=== PATIENT | male | born 1955 | race Two or more races ===

== ENCOUNTER 2023-03-10 05:13 | Inpatient (IN) | payer OTHER ==
[~2023-03-10] VITALS: Ht 165.1 cm; Wt 97.5 kg
[2023-03-10] MEDS ORDERED: POLYMYXIN B SULFATE 500,000 UNITS ONE (05:48)
[2023-03-10] MEDS ORDERED: ANESTHESIA TRAY IN PYXIS 1 EA TRAY MC ONE (05:48)
[2023-03-10] MEDS ORDERED: BUPIVACAINE 0.5 % PF 150 MG/30 ML VIAL ONE ×2 (05:48→06:09)
[2023-03-10 05:57] VITALS: BP 180/99; TEMP 98.2; O2SAT 98
[2023-03-10] MEDS ORDERED: HYDROMORPHONE INJ 2 MG/ML DISP.SYRIN ONE (06:08)
[2023-03-10] MEDS ORDERED: FENTANYL PF 250MCG/5ML AMPUL ONE (06:08)
[2023-03-10] MEDS ORDERED: FAMOTIDINE/PF INJ 20 MG/2 ML VIAL IV ONE (06:09)
[2023-03-10] MEDS ORDERED: ROCURONIUM BROMIDE 50 MG/5 ML ONE (06:09)
[2023-03-10] MEDS ORDERED: TRANEXAMIC ACID 3,000 MG in SODIUM CHLORIDE IRRIG SOLUTION 70 ML IR ONE (07:00)
[2023-03-10] MEDS ORDERED: SEVOFLURANE 250 ML BOTTLE IH ONE (07:19)
[2023-03-10] MEDS ORDERED: hydrALAZINE HCL IV 20 MG VIAL ONE (09:27)
[2023-03-10] MEDS ORDERED: PANT40TA49 PO (09:54)
[2023-03-10] MEDS ORDERED: TRAZ-182 PO (09:54)
[2023-03-10] MEDS ORDERED: ACET-2605 PO (09:54)
[2023-03-10] MEDS ORDERED: AMLO-212 PO (09:54)
[2023-03-10] MEDS: IV D5/0.45 NACL 1,000 ML IV PRN ×2 (09:59→18:08)
[2023-03-10] MEDS ORDERED: ZOLPIDEM TARTRATE 5 MG TABLET PO PRN (10:00)
[2023-03-10] MEDS ORDERED: BISACODYL SUPP (10 MG) 10 MG/SUPP.RECT SUPP.RECT RC PRN (10:00)
[2023-03-10] MEDS ORDERED: ONDANSETRON HCL/PF 4 MG/2 ML VIAL IV PRN (10:00)
[2023-03-10] MEDS ORDERED: DOCUSATE SODIUM 250 MG CAPSULE PO PRN (10:00)
[2023-03-10] MEDS ORDERED: ACETAMINOPHEN 325 MG TABLET PO PRN (10:00)
[2023-03-10] MEDS ORDERED: HYDROCODONE/APAP 5/325MG TABLET PO PRN (10:00)
[2023-03-10] MEDS ORDERED: SENNOSIDES 8.6 MG TABLET PO PRN (10:00)
[2023-03-10] MEDS: HYDROMORPHONE 1 MG/1 ML DISP.SYRIN IV PRN ×4 (11:04→22:23)
[2023-03-10] MEDS: ANCEF 1 GM/50 ML D5W IV SCH ×4 (14:09→22:11)
[2023-03-10 16:00] VITALS: BP 128/76; TEMP 97.9; O2SAT 97
[2023-03-10 20:00] VITALS: BP 163/99; TEMP 98.2; O2SAT 98
[2023-03-10] MEDS ORDERED: oxyCODONE IR immediate release 5 MG PO ONE (20:30)
[2023-03-10] MEDS ORDERED: diphenhydrAMINE HCL 25 MG CAPSULE PO PRN (20:30)
[2023-03-10] MEDS ORDERED: CLONIDINE HCL 0.1 MG TABLET PO PRN (20:30)
[2023-03-10] MEDS ORDERED: MAG HYDROX/AL HYDROX/SIMETH 30 ML UDC PO PRN (20:30)
[2023-03-10] MEDS: FAMOTIDINE (20 MG) 20 MG TABLET PO SCH (20:56)
[2023-03-10] MEDS ORDERED: AMLODIPINE BESYLATE 5 MG TABLET PO ONE (21:00)
[2023-03-10 23:00] VITALS: BP 159/87; O2SAT 98
[2023-03-11] MEDS: IV D5/0.45 NACL 1,000 ML IV PRN (02:25)
[2023-03-11] MEDS: oxyCODONE IR immediate release 5 MG PO PRN ×3 (02:43→12:25)
[2023-03-11] MEDS: HYDROMORPHONE 1 MG/1 ML DISP.SYRIN IV PRN ×2 (04:46→09:20)
[2023-03-11 07:00] VITALS: BP 182/107; TEMP 98.6; O2SAT 97
[2023-03-11 07:19] LABS: BASOPHILS % (AUTO) 0.1 % (0.0-2.0); HEMATOCRIT 44 % (39-51); HEMOGLOBIN 14.9 g/dL (13.5-17.5); LYMPHOCYTES # (AUTO) 1.3 K/uL (0.8-4.8); LYMPHOCYTES % (AUTO) 11.9 % (20.0-44.0); MEAN CORPUSCULAR HEMOGLOBIN 29 PG (26.0-33.0); MEAN CORPUSCULAR HGB CONC 34 g/dl (31.0-36.0); MEAN CORPUSCULAR VOLUME 87 fL (80-96); MONOCYTES # (AUTO) 1.2 K/uL (0.1-1.30); NEUTROPHILS # (AUTO) 8.4 K/uL (1.8-8.9); PLATELET COUNT (AUTO) 145 K/uL (150-450); RED BLOOD CELL COUNT(AUTO) 5.11 MIL/uL (4.5-6.0); RED CELL DISTRIBUTION WIDTH 14.2 % (11.5-15.0); WHITE BLOOD COUNT (AUTO) 10.9 K/uL (4.3-11.0)
[2023-03-11 07:31] LABS: CALCIUM, SERUM 8.5 mg/dL (8.5-10.1); CREATININE 1.2 mg/dL (0.6-1.3); MAGNESIUM 1.5 mg/dL (1.8-2.4); PHOSPHORUS 2.3 mg/dL (2.5-4.9); POTASSIUM 3.9 mmol/L (3.5-5.1)
[2023-03-11 08:07] VITALS: BP 180/101
[2023-03-11] MEDS: FAMOTIDINE (20 MG) 20 MG TABLET PO SCH (08:07)
[2023-03-11] MEDS ORDERED: DOCUSATE SODIUM 100 MG CAPSULE PO SCH (09:00)
[2023-03-11] MEDS ORDERED: PANTOPRAZOLE 40 MG TABLET.DR PO SCH (09:00)
[2023-03-11] MEDS ORDERED: ASPIRIN 325 MG TABLET PO SCH (09:00)
[2023-03-11] MEDS ORDERED: AMLODIPINE BESYLATE 5 MG TABLET PO SCH (09:00)
[2023-03-11] MEDS ORDERED: MAGNESIUM OXIDE 400 MG TABLET PO ONE (10:30)
[2023-03-11] MEDS ORDERED: K PHOS NEUTRAL 250 MG TABLET PO ONE (10:30)
[2023-03-11] MEDS ORDERED: DOCU100C36 PO (12:12)
[2023-03-11] MEDS ORDERED: HYDR-3972 PO (12:12)
[2023-03-11] MEDS ORDERED: ASPI-992 PO (12:12)
[2023-03-11] MEDS ORDERED: SENN-175 PO (12:12)
== END 2023-03-11 14:17 | disposition home health service (06) | DRG 470 ==
LOC: DS 05:13 → MED 05:14
PROVIDERS: ADMIT Specialist; ATTEND Specialist
PROC: 0SRC0L9 Replacement of Right Knee Joint with Medial Unicondylar Synthetic Substitute, Cemented, Open Approach (ICD-10-PCS; principal; 2023-03-10)
DX: M17.11 Unilateral primary osteoarthritis, right knee (principal); I12.9 Hypertensive chronic kidney disease with stage 1 through stage 4 chronic kidney disease, or unspecified chronic kidney disease; N18.9 Chronic kidney disease, unspecified; E66.9 Obesity, unspecified; Z68.36 Body mass index [BMI] 36.0-36.9, adult; X58.XXXA Exposure to other specified factors, initial encounter; Y99.0 Civilian activity done for income or pay; Y92.9 Unspecified place or not applicable; K21.9 Gastro-esophageal reflux disease without esophagitis; F51.04 Psychophysiologic insomnia
CPT/HCPCS: 36415; 80048-TC; 83735-TC; 84100-TC; 85025-TC; 87081-TC; 97110-TC; 97116-TC; 97530-TC; 97760-TC; A4217; A6253; C1713; C1776; G0378; J0360; J0690; J1170; J2405; J2704; J2765; J3010; J3490; J7030; J7060; L1830

== ENCOUNTER 2023-07-14 16:10 | Emergency (ER) | payer OTHER ==
[~2023-07-14] VITALS: Ht 165.1 cm; Wt 94.8 kg
[~2023-07-14 16:10] MED LIST: ACET-2605 PO; AMLO-212 PO; ASPI-992 PO; DOCU100C36 PO; HYDR-3972 PO; PANT40TA49 PO; SENN-175 PO; TRAZ-182 PO
[2023-07-14 17:26] LABS: BASOPHILS % (AUTO) 0.6 % (0.0-2.0); EOSINOPHILS # (AUTO) 0.1 K/uL (0.0-0.7); HEMATOCRIT 49 % (39-51); HEMOGLOBIN 16.4 g/dL (13.5-17.5); LYMPHOCYTES # (AUTO) 2.3 K/uL (0.8-4.8); LYMPHOCYTES % (AUTO) 30.8 % (20.0-44.0); MEAN CORPUSCULAR HEMOGLOBIN 29 PG (26.0-33.0); MEAN CORPUSCULAR HGB CONC 34 g/dl (31.0-36.0); MEAN CORPUSCULAR VOLUME 86 fL (80-96); MONOCYTES # (AUTO) 0.6 K/uL (0.1-1.30); MONOCYTES % (AUTO) 7.7 % (2.0-12.0); NEUTROPHILS # (AUTO) 4.4 K/uL (1.8-8.9); NEUTROPHILS % (AUTO) 58.9 % (43.0-81.0); PLATELET COUNT (AUTO) 161 K/uL (150-450); RED BLOOD CELL COUNT(AUTO) 5.64 MIL/uL (4.5-6.0); WHITE BLOOD COUNT (AUTO) 7.4 K/uL (4.3-11.0)
[2023-07-14 17:41] LABS: CALCIUM, SERUM 9.4 mg/dL (8.5-10.1); CREATININE 1.2 mg/dL (0.6-1.3); POTASSIUM 3.7 mmol/L (3.5-5.1)
[2023-07-14 17:46] LABS: INR 1.03 (0.91-1.10); PARTIAL THROMBOPLASTIN TIME 30.5 SEC (24.3-34.3); PROTHROMBIN TIME 10.9 SECS (9.2-11.1)
[2023-07-14 17:49] LABS: ALBUMIN 3.9 g/dL (3.4-5.0); BILIRUBIN,TOTAL 0.5 mg/dL (0.2-1.0); TOTAL PROTEIN, SERUM 8.1 g/dL (6.4-8.2)
[2023-07-14 18:08] VITALS: BP 170/92; TEMP 98.2; O2SAT 97
== END 2023-07-14 18:05 | disposition home or self-care (01) ==
LOC: ER 16:25
DX: M79.661 Pain in right lower leg (principal); M79.89 Other specified soft tissue disorders; I10 Essential (primary) hypertension
CPT/HCPCS: 36415; 80053-TC; 85025-TC; 85730-TC; 93971-TC